=== PATIENT | male | born 1990 | race Caucasian/White ===

== ENCOUNTER 2017-07-10 11:13 | Emergency (ER) | payer MEDICAID, OTHER ==
[~2017-07-10] VITALS: Ht 172.7 cm; Wt 80.7 kg
[2017-07-10 11:18] VITALS: Ht 172.7 cm; Wt 80.7 kg
[2017-07-10] MEDS ORDERED: ONDANSETRON 4 MG INJ IV STA (11:30)
[2017-07-10] MEDS ORDERED: morphine 4 MG/ML VIAL IV STA (11:30)
[2017-07-10] MEDS ORDERED: SOD CHLORIDE 0.9% 1,000 ML IV STA (11:30)
--- NOTE | 2017-07-10 11:59 | RADRPT ---
PROCEDURE: XR Chest. CLINICAL INDICATION: Chest Pain. TECHNIQUE: Single frontal view of the chest. COMPARISON: None. FINDINGS: The cardiomediastinal silhouette is within normal limits. The lungs are clear. No signs of pleural f luid or pneumothorax are seen. The osseous structures and soft tissues are unremarkable. IMPRESSION: 1. No acute cardiopulmonary disease. RPTAT:AAJJ Physician Johny Date Time Electronically viewed and signed by Stormy Richardson Physician on 07/10/2017 11:59 QL/
[2017-07-10] MEDS ORDERED: IOHEXOL 100 ML ONE (12:52)
[2017-07-10] MEDS ORDERED: IOHEXOL 350MG/ML 50 ML BTL ONE (12:52)
[2017-07-10] MEDS ORDERED: SOD CHLORIDE 0.9% 100 ML ONE (12:52)
--- NOTE | 2017-07-10 13:02 | RADRPT ---
PROCEDURE: CT brain without contrast CLINICAL INDICATION: Head pain TECHNIQUE: CT of the brain without contrast was performed on a multidetector CT scanner, with multi planar reformats. One or more of the following dose reduction techniques were used: Automated expos ure control, adjustment in mA and / or kV according to patient size, use of iterative reconstructive technique. CTDIvol = 45 mGy; DLP = 720 mGy-cm. COMPARISON: None available FINDINGS: No acute intracranial hemorrhage is identified. No extra-axial fluid collection is seen. There is no mass effect. No midline shift is identified. Ventricles and sulci are within normal limits for size and configuration. The density of the brain is within normal limits. Vazquez-white differentiation is preserved. Calvarium and skull base are intact. Mastoid air cells and imaged paranasal sinuses grossly clear. IMPRESSION: Unremarkable noncontrast CT of the brain. RPTAT: GG .Clay Man MD, MD Date Time Electronically viewed and signed by .Clay Man MD, MD on 07/10/2017 13:01 .O/
--- NOTE | 2017-07-10 13:25 | RADRPT ---
PROCEDURE: CT Abdomen and Pelvis with contrast. CLINICAL INDICATION: Abdomen and pelvis pain. TECHNIQUE: CT scan of the abdomen and pelvis with contrast was performed. The patient was scanned following the uncomplicated intravenous administration of 100 cc of Omnipaque-300. Coronal and sag ittal reformatted images were obtained from the axial source images. Images were reviewed on a high- resolution PACS workstation. Total exam DLP is 553.95 mGy-cm. CTDIvol is 9.22 mGy. One or more of the following dose reduction techniques were used: Automated exposure control, adjustment of the mA and/or kV according to patient size, use of iterative reconstruction technique. COMPARISON: None. FINDINGS: The lung bases are normal. There is no pleural effusion. The liver is normal in size and attenuation. There is no focal hepatic lesion. The gallbladder and bile ducts are normal. The spleen is normal in size. There is no focal splenic lesion. Both adrenals are normal with no enlargement or mass. The pancreas is unremarkable with no mass or evidence of pancreatitis. Both kidneys demonstrate normal contrast enhancement. There is no renal mass or hydronephrosis. The abdominal aorta is not dilated. There is no retroperitoneal lymphadenopathy or mass. There is no pelvic lymphadenopathy or mass. The bladder and distal ureters are normal. The appendix is well seen and appears normal. There is diverticulosis of the transverse colon in the right side of the abdomen with no evidence of diverticulitis. There is a fat-containing right inguinal hernia. There is no herniated bowel. The b owel and mesentery are otherwise normal. There is no free fluid or free gas. The osseous structures are unremarkable with no fracture or lytic lesion. IMPRESSION: 1. Normal appendix. 2. Diverticulosis of the right side of the transverse colon. 3. No evidence of diverticulitis. 4. Fat-containing right inguinal hernia. No herniated bowel. 5. Otherwise unremarkable contrast enhanced CT scan of the abdomen and pelvis. RPTAT: QQ .Matthias Macedo MD, MD Date Time Electronically viewed and signed by .Matthias Macedo MD, on 07/10/2017 13:25 .R/
--- NOTE | 2017-07-10 13:27 | RADRPT ---
PROCEDURE: CTA Chest. CLINICAL INDICATION: Chest pain and shortness of breath TECHNIQUE: Continues 1.25 mm axial images were obtained from lung apices to the domes of diaphragm s following intravenous injection of 100 cc of Isovue 370. Images reconstructed in coronal, sagitta l, and 3-D format using maximum intensity projection technique.. The calculated dose length product (DLP) = 1098.23 mGy-cm. The CTDlvol = 13.70 mGy. One or more of the following dose reduction techni ques were used: Automated exposure control, adjustment of the mA and or KV according to patient size , or use of iterative reconstruction technique. COMPARISON: No prior studies are available for comparison. FINDINGS: Images through the pulmonary arteries demonstrates no evidence of a large or central pulmonary embol i. The ascending and descending thoracic aorta are normal in caliber without aneurysmal dilatation o r dissection. Heart chambers are normal in size. No pericardial effusion is seen. There is no signif icant coronary calcification. No pathologically enlarged mediastinal or axillary lymph nodes are see n. Evaluation of the lung owen demonstrates no confluent pneumonia, pleural fluid, or pneumothorax. T he underlying architecture of the lungs is normal. No suspicious or dominant lung nodules/masses are seen. No destructive bony lesions are identified.. IMPRESSION: 1. No evidence of large or central pulmonary emboli. 2. No aortic aneurysm or dissection. 3. Lungs clear RPTAT: HH .Kartik Willis MD, MD Date Time Electronically viewed and signed by .Kartik Willis MD, MD on 07/10/2017 13:27 .W/
[2017-07-10] MEDS ORDERED: IBUP-1542 PO (13:31)
--- NOTE | 2017-07-10 13:33 | ERD ---
ER Documentation Chief Complaint Chief Complaint LT SIDE NUMBNESS , CHEST PAIN , SOB STARTED 45 MTS AGO @ WORK HPI Patient is a 27-year-old male with seizures who presents with chest pain. He has had chest pain and right-sided arm weakness. It started 45 minutes prior to arrival. He was brought in by a friend who is working with him. He said that he passed out yesterday at his soccer game. He has shortness of breath. The chest pain is in the midsternal area and does not radiate. He has had no treatment as of yet. He says "I kind of had a seizure today". He admits to using cocaine yesterday and this was the first time he ever used. Upon review of old medical records this is the patient's first visit to the emergency department. He does not currently have a primary doctor. ROS All systems reviewed and are negative except as per history of present illness. Medications Home Meds Active Scripts Ibuprofen* (Motrin*) 600 Mg Tab, 600 MG PO Q6H Y for PAIN AND OR ELEVATED TEMP, #30 TAB Prov:WILLA ISSA MD 07/10/17 Allergies Allergies: Coded Allergies: No Known Allergy (Unverified , 07/10/17) PMhx/Soc Medical and Surgical Hx: pt denies Medical Hx, pt denies Surgical Hx Hx Alcohol Use: Yes (social) Hx Substance Use: No Hx Tobacco Use: Yes Smoking Status: Current every day smoker FmHx Family History: No diabetes Physical Exam Vitals Vital Signs Date Time Temp Pulse Resp B/P Pulse Ox O2 Delivery O2 Flow Rate FiO2 07/10/17 11:18 97.8 71 18 118/71 99 Physical Exam Const: Moderate distress Head: Atraumatic Eyes: Normal Conjunctiva ENT: Normal External Ears, Nose and Mouth. Neck: Full range of motion..~ No meningismus. Resp: Clear to auscultation bilaterally Cardio: Regular rate and rhythm, no murmurs Abd: Soft, non tender, non distended. Normal bowel sounds Skin: No petechiae or rashes Back: No midline or flank tenderness Ext: No cyanosis, or edema Neur: Awake confused, equal fruit shipper strength bilaterally although the fruit shipper strength is decreased, normal cranial nerves II through XII, no slurred speech Result Diagram: 07/10/17 1203 07/10/17 1203 Results 24 hrs Laboratory Tests Test 07/10/17 12:03 White Blood Count 8.210^3/ul Red Blood Count 5.2510^6/ul Hemoglobin 16.1g/dl Hematocrit 46.1% Mean Corpuscular Volume 87.8fl Mean Corpuscular Hemoglobin 30.7pg Mean Corpuscular Hemoglobin Concent 34.9g/dl Red Cell Distribution Width 12.6% Platelet Count 03682^3/UL Mean Platelet Volume 9.8fl Neutrophils % 60.0% Lymphocytes % 29.8% Monocytes % 8.7% Eosinophils % 0.9% Basophils % 0.2% Nucleated Red Blood Cells % 0.0/100WBC Neutrophils # 4.910^3/ul Lymphocytes # 2.410^3/ul Monocytes # 0.710^3/ul Eosinophils # 0.110^3/ul Basophils # 0.010^3/ul Nucleated Red Blood Cells # 0.010^3/ul Prothrombin Time 13.0Sec Prothrombin Time Ratio 1.0 INR International Normalized Ratio 0.98 Activated Partial Thromboplast Time 26.5Sec Sodium Level 141mmol/L Potassium Level 3.8mmol/L Chloride Level 104mmol/L Carbon Dioxide Level 27mmol/L Anion Gap 14 Blood Urea Nitrogen 17mg/dl Creatinine 1.21mg/dl Glucose Level 95mg/dl Calcium Level 9.1mg/dl Troponin I < 0.012ng/ml Current Medications Medications (Trade) Dose Ordered Sig/Jovanna Route PRN Reason Start Time Stop Time Status Last Admin Dose Admin Sodium Chloride (NS) 1,000 ml @ 1,000 mls/hr Q1H STAT IV 07/10/17 11:30 07/10/17 12:29 DC 07/10/17 12:40 Morphine Sulfate (morphine) 4 mg ONCE STAT IV 07/10/17 11:30 07/10/17 11:33 DC Ondansetron HCl 4 mg 4 mg ONCE STAT IV 07/10/17 11:30 07/10/17 11:33 DC Sodium Chloride 100 ml @ ud STK-MED ONCE .ROUTE 07/10/17 12:52 07/10/17 12:53 DC Iohexol (Omnipaque) 100 ml @ ud STK-MED ONCE .ROUTE 07/10/17 12:52 07/10/17 12:53 DC Iohexol (Omnipaque 350mg/ ml) 50 ml STK-MED ONCE .ROUTE 07/10/17 12:52 07/10/17 12:53 DC Procedures/MDM EKG read by me: Rate/Rhythm: Regular rate and rhythm at a rate of 61 Intervals: Normal Impression: No evidence of ischemia or arrhythmia Chest x-ray negative per radiology. CT of the head, chest, and abdomen negative per radiology. Smoking Cessation Therapy: Pt. was lectured for greater than 3 minutes on the health risks of continued smoking and the benefits of cessation. Patient is a 27-year-old male who presents with complaint of chest pain and weakness. He had a full workup including laboratory studies, EKG, CT scan of the brain, chest, and abdomen which were all negative. I believe his symptoms are likely related to the cocaine use yesterday. I doubt stroke, intracranial hemorrhage, or intracranial mass. I doubt acute coronary syndrome, pneumonia, pneumothorax, pulmonary embolism, or aortic dissection. I believe outpatient management is appropriate at this time. He feels much better after fluids and pain medicine. He will be discharged into the care of his who is here with him at the bedside. He was given copies of his laboratory studies and imaging test prior to discharge. He will need to follow-up the local clinics within 24-48 hours for reevaluation. He was instructed not to use cocaine or smoking in the future. Critical Care: Time: 35 minutes excluding all billable procedures. Treatments/Evaluations: Close monitoring and treatment of unstable vital signs, cardiorespiratory, and neurologic status, while maintaining tight balance of fluid, respiratory, and cardiac interventions. Departure Diagnosis: Primary Impression: Near syncope Additional Impression: Chest pain Chest pain type: unspecified Qualified Code: R07.9 - Chest pain, unspecified type Condition: Fair Patient Instructions: Chest Pain, Uncertain Cause [facility]errals[facility] Usted se diaz hecho un examen mdico de control que le indica que no est en alta condicin que requiera tratamiento urgente en el Departamento de Emergencia. Un estudio ms profundo y el tratamiento de gatica condicin pueden esperar sin ningn riesgo hasta que usted sea atendida/o en el consultorio de gatica mdico o alta cl isaac. Es responsabilidad suya arreglar alta dillon para el seguimiento del alejandro. MANEJO DE CONDICIONES NO URGENTES EN EL FUTURO 1) Si usted tiene un mdico de atencin primaria: Usted debera llamar a gatica mdico de atencin primaria antes de venir al departamento de emergencia. Despus de las horas de consultorio, gatica doctor o gatica asociado/a est disponible por telfono. El mdico o enfermero de gina en el servicio telefnico puede asesorarle por [employer] para atender el problema, o alejandro contrario se puede programar alta dillon. 2) Si usted no tiene un mdico de atencin primaria: Llame al mdico o clnica de referencia que aparece abajo poncho las horas de consultorio para hacer alta dillon para que le vean. CLINICAS: [facility] [phone] [facility] [phone] [facility] [phone] [address] [facility] [phone] [facility] [facility] [place] [id number] [phone] [facility] [phone] [address] Additional Instructions: Llame al doctor MAANA y светлана alta DILLON PARA DENTRO DE 1-2 EARL.Dgale a la secretaria que nosotros le instruimos hacer esta dillon.Avise o llame si gatica condicin se empeora antes de la dillon. Regresa aqui si peor o no mejor. WILLA ISSA MD Jul 10, 2017 13:33
--- NOTE | 2017-07-10 13:33 | ERD ---
ER Documentation Chief Complaint Chief Complaint LT SIDE NUMBNESS , CHEST PAIN , SOB STARTED 45 MTS AGO @ WORK HPI Patient is a 27-year-old male with seizures who presents with chest pain. He has had chest pain and right-sided arm weakness. It started 45 minutes prior to arrival. He was brought in by a friend who is working with him. He said that he passed out yesterday at his soccer game. He has shortness of breath. The chest pain is in the midsternal area and does not radiate. He has had no treatment as of yet. He says "I kind of had a seizure today". He admits to using cocaine yesterday and this was the first time he ever used. Upon review of old medical records this is the patient's first visit to the emergency department. He does not currently have a primary doctor. ROS All systems reviewed and are negative except as per history of present illness. Medications Home Meds Active Scripts Ibuprofen* (Motrin*) 600 Mg Tab, 600 MG PO Q6H Y for PAIN AND OR ELEVATED TEMP, #30 TAB Prov:WILLA ISSA MD 07/10/17 Allergies Allergies: Coded Allergies: No Known Allergy (Unverified , 07/10/17) PMhx/Soc Medical and Surgical Hx: pt denies Medical Hx, pt denies Surgical Hx Hx Alcohol Use: Yes (social) Hx Substance Use: No Hx Tobacco Use: Yes Smoking Status: Current every day smoker FmHx Family History: No diabetes Physical Exam Vitals Vital Signs Date Time Temp Pulse Resp B/P Pulse Ox O2 Delivery O2 Flow Rate FiO2 07/10/17 11:18 97.8 71 18 118/71 99 Physical Exam Const: Moderate distress Head: Atraumatic Eyes: Normal Conjunctiva ENT: Normal External Ears, Nose and Mouth. Neck: Full range of motion..~ No meningismus. Resp: Clear to auscultation bilaterally Cardio: Regular rate and rhythm, no murmurs Abd: Soft, non tender, non distended. Normal bowel sounds Skin: No petechiae or rashes Back: No midline or flank tenderness Ext: No cyanosis, or edema Neur: Awake confused, equal jute bag sewer strength bilaterally although the jute bag sewer strength is decreased, normal cranial nerves II through XII, no slurred speech Result Diagram: 07/10/17 1203 07/10/17 1203 Results 24 hrs Laboratory Tests Test 07/10/17 12:03 White Blood Count 8.210^3/ul Red Blood Count 5.2510^6/ul Hemoglobin 16.1g/dl Hematocrit 46.1% Mean Corpuscular Volume 87.8fl Mean Corpuscular Hemoglobin 30.7pg Mean Corpuscular Hemoglobin Concent 34.9g/dl Red Cell Distribution Width 12.6% Platelet Count 62721^3/UL Mean Platelet Volume 9.8fl Neutrophils % 60.0% Lymphocytes % 29.8% Monocytes % 8.7% Eosinophils % 0.9% Basophils % 0.2% Nucleated Red Blood Cells % 0.0/100WBC Neutrophils # 4.910^3/ul Lymphocytes # 2.410^3/ul Monocytes # 0.710^3/ul Eosinophils # 0.110^3/ul Basophils # 0.010^3/ul Nucleated Red Blood Cells # 0.010^3/ul Prothrombin Time 13.0Sec Prothrombin Time Ratio 1.0 INR International Normalized Ratio 0.98 Activated Partial Thromboplast Time 26.5Sec Sodium Level 141mmol/L Potassium Level 3.8mmol/L Chloride Level 104mmol/L Carbon Dioxide Level 27mmol/L Anion Gap 14 Blood Urea Nitrogen 17mg/dl Creatinine 1.21mg/dl Glucose Level 95mg/dl Calcium Level 9.1mg/dl Troponin I < 0.012ng/ml Current Medications Medications (Trade) Dose Ordered Sig/Jovanna Route PRN Reason Start Time Stop Time Status Last Admin Dose Admin Sodium Chloride (NS) 1,000 ml @ 1,000 mls/hr Q1H STAT IV 07/10/17 11:30 07/10/17 12:29 DC 07/10/17 12:40 Morphine Sulfate (morphine) 4 mg ONCE STAT IV 07/10/17 11:30 07/10/17 11:33 DC Ondansetron HCl 4 mg 4 mg ONCE STAT IV 07/10/17 11:30 07/10/17 11:33 DC Sodium Chloride 100 ml @ ud STK-MED ONCE .ROUTE 07/10/17 12:52 07/10/17 12:53 DC Iohexol (Omnipaque) 100 ml @ ud STK-MED ONCE .ROUTE 07/10/17 12:52 07/10/17 12:53 DC Iohexol (Omnipaque 350mg/ ml) 50 ml STK-MED ONCE .ROUTE 07/10/17 12:52 07/10/17 12:53 DC Procedures/MDM EKG read by me: Rate/Rhythm: Regular rate and rhythm at a rate of 61 Intervals: Normal Impression: No evidence of ischemia or arrhythmia Chest x-ray negative per radiology. CT of the head, chest, and abdomen negative per radiology. Smoking Cessation Therapy: Pt. was lectured for greater than 3 minutes on the health risks of continued smoking and the benefits of cessation. Patient is a 27-year-old male who presents with complaint of chest pain and weakness. He had a full workup including laboratory studies, EKG, CT scan of the brain, chest, and abdomen which were all negative. I believe his symptoms are likely related to the cocaine use yesterday. I doubt stroke, intracranial hemorrhage, or intracranial mass. I doubt acute coronary syndrome, pneumonia, pneumothorax, pulmonary embolism, or aortic dissection. I believe outpatient management is appropriate at this time. He feels much better after fluids and pain medicine. He will be discharged into the care of his who is here with him at the bedside. He was given copies of his laboratory studies and imaging test prior to discharge. He will need to follow-up the local clinics within 24-48 hours for reevaluation. He was instructed not to use cocaine or smoking in the future. Critical Care: Time: 35 minutes excluding all billable procedures. Treatments/Evaluations: Close monitoring and treatment of unstable vital signs, cardiorespiratory, and neurologic status, while maintaining tight balance of fluid, respiratory, and cardiac interventions. Departure Diagnosis: Primary Impression: Near syncope Additional Impression: Chest pain Chest pain type: unspecified Qualified Code: R07.9 - Chest pain, unspecified type Condition: Fair Patient Instructions: Chest Pain, Uncertain Cause Referrals: [facility] Usted se diaz hecho un examen mdico de control que le indica que no est en alta condicin que requiera tratamiento urgente en el Departamento de Emergencia. Un estudio ms profundo y el tratamiento de gatica condicin pueden esperar sin ningn riesgo hasta que usted sea atendida/o en el consultorio de gatica mdico o alta cl isaac. Es responsabilidad suya arreglar alta dillon para el seguimiento del alejandro. MANEJO DE CONDICIONES NO URGENTES EN EL FUTURO 1) Si usted tiene un mdico de atencin primaria: Usted debera llamar a gatica mdico de atencin primaria antes de venir al departamento de emergencia. Despus de las horas de consultorio, gatica doctor o gatica asociado/a est disponible por telfono. El mdico o enfermero de gina en el servicio telefnico puede asesorarle por [employer] para atender el problema, o alejandro contrario se puede programar alta dillon. 2) Si usted no tiene un mdico de atencin primaria: Llame al mdico o clnica de referencia que aparece abajo poncho las horas de consultorio para hacer alta dillon para que le vean. CLINICAS: [facility] [phone] [facility] [phone] [facility] [phone] [facility] [phone] [facility] [place] [id number] [phone] [facility]. [phone] [address] Additional Instructions: Llame al doctor MAANA y светлана alta DILLON PARA DENTRO DE 1-2 EARL.Dgale a la secretaria que nosotros le instruimos hacer esta dillon.Avise o llame si gatica condicin se empeora antes de la dillon. Regresa aqui si peor o no mejor. WILLA ISSA MD Jul 10, 2017 13:33
--- NOTE | 2017-07-10 13:33 | ERD ---
ER Documentation Chief Complaint Chief Complaint LT SIDE NUMBNESS , CHEST PAIN , SOB STARTED 45 MTS AGO @ WORK HPI Patient is a 27-year-old male with seizures who presents with chest pain. He has had chest pain and right-sided arm weakness. It started 45 minutes prior to arrival. He was brought in by a friend who is working with him. He said that he passed out yesterday at his soccer game. He has shortness of breath. The chest pain is in the midsternal area and does not radiate. He has had no treatment as of yet. He says "I kind of had a seizure today". He admits to using cocaine yesterday and this was the first time he ever used. Upon review of old medical records this is the patient's first visit to the emergency department. He does not currently have a primary doctor. ROS All systems reviewed and are negative except as per history of present illness. Medications Home Meds Active Scripts Ibuprofen* (Motrin*) 600 Mg Tab, 600 MG PO Q6H Y for PAIN AND OR ELEVATED TEMP, #30 TAB Prov:WILLA ISSA MD 07/10/17 Allergies Allergies: Coded Allergies: No Known Allergy (Unverified , 07/10/17) PMhx/Soc Medical and Surgical Hx: pt denies Medical Hx, pt denies Surgical Hx Hx Alcohol Use: Yes (social) Hx Substance Use: No Hx Tobacco Use: Yes Smoking Status: Current every day smoker FmHx Family History: No diabetes Physical Exam Vitals Vital Signs Date Time Temp Pulse Resp B/P Pulse Ox O2 Delivery O2 Flow Rate FiO2 07/10/17 11:18 97.8 71 18 118/71 99 Physical Exam Const: Moderate distress Head: Atraumatic Eyes: Normal Conjunctiva ENT: Normal External Ears, Nose and Mouth. Neck: Full range of motion..~ No meningismus. Resp: Clear to auscultation bilaterally Cardio: Regular rate and rhythm, no murmurs Abd: Soft, non tender, non distended. Normal bowel sounds Skin: No petechiae or rashes Back: No midline or flank tenderness Ext: No cyanosis, or edema Neur: Awake confused, equal apron man strength bilaterally although the apron man strength is decreased, normal cranial nerves II through XII, no slurred speech Result Diagram: 07/10/17 1203 07/10/17 1203 Results 24 hrs Laboratory Tests Test 07/10/17 12:03 White Blood Count 8.210^3/ul Red Blood Count 5.2510^6/ul Hemoglobin 16.1g/dl Hematocrit 46.1% Mean Corpuscular Volume 87.8fl Mean Corpuscular Hemoglobin 30.7pg Mean Corpuscular Hemoglobin Concent 34.9g/dl Red Cell Distribution Width 12.6% Platelet Count 05293^3/UL Mean Platelet Volume 9.8fl Neutrophils % 60.0% Lymphocytes % 29.8% Monocytes % 8.7% Eosinophils % 0.9% Basophils % 0.2% Nucleated Red Blood Cells % 0.0/100WBC Neutrophils # 4.910^3/ul Lymphocytes # 2.410^3/ul Monocytes # 0.710^3/ul Eosinophils # 0.110^3/ul Basophils # 0.010^3/ul Nucleated Red Blood Cells # 0.010^3/ul Prothrombin Time 13.0Sec Prothrombin Time Ratio 1.0 INR International Normalized Ratio 0.98 Activated Partial Thromboplast Time 26.5Sec Sodium Level 141mmol/L Potassium Level 3.8mmol/L Chloride Level 104mmol/L Carbon Dioxide Level 27mmol/L Anion Gap 14 Blood Urea Nitrogen 17mg/dl Creatinine 1.21mg/dl Glucose Level 95mg/dl Calcium Level 9.1mg/dl Troponin I < 0.012ng/ml Current Medications Medications (Trade) Dose Ordered Sig/Jovanna Route PRN Reason Start Time Stop Time Status Last Admin Dose Admin Sodium Chloride (NS) 1,000 ml @ 1,000 mls/hr Q1H STAT IV 07/10/17 11:30 07/10/17 12:29 DC 07/10/17 12:40 Morphine Sulfate (morphine) 4 mg ONCE STAT IV 07/10/17 11:30 07/10/17 11:33 DC Ondansetron HCl 4 mg 4 mg ONCE STAT IV 07/10/17 11:30 07/10/17 11:33 DC Sodium Chloride 100 ml @ ud STK-MED ONCE .ROUTE 07/10/17 12:52 07/10/17 12:53 DC Iohexol (Omnipaque) 100 ml @ ud STK-MED ONCE .ROUTE 07/10/17 12:52 07/10/17 12:53 DC Iohexol (Omnipaque 350mg/ ml) 50 ml STK-MED ONCE .ROUTE 07/10/17 12:52 07/10/17 12:53 DC Procedures/MDM EKG read by me: Rate/Rhythm: Regular rate and rhythm at a rate of 61 Intervals: Normal Impression: No evidence of ischemia or arrhythmia Chest x-ray negative per radiology. CT of the head, chest, and abdomen negative per radiology. Smoking Cessation Therapy: Pt. was lectured for greater than 3 minutes on the health risks of continued smoking and the benefits of cessation. Patient is a 27-year-old male who presents with complaint of chest pain and weakness. He had a full workup including laboratory studies, EKG, CT scan of the brain, chest, and abdomen which were all negative. I believe his symptoms are likely related to the cocaine use yesterday. I doubt stroke, intracranial hemorrhage, or intracranial mass. I doubt acute coronary syndrome, pneumonia, pneumothorax, pulmonary embolism, or aortic dissection. I believe outpatient management is appropriate at this time. He feels much better after fluids and pain medicine. He will be discharged into the care of his who is here with him at the bedside. He was given copies of his laboratory studies and imaging test prior to discharge. He will need to follow-up the local clinics within 24-48 hours for reevaluation. He was instructed not to use cocaine or smoking in the future. Critical Care: Time: 35 minutes excluding all billable procedures. Treatments/Evaluations: Close monitoring and treatment of unstable vital signs, cardiorespiratory, and neurologic status, while maintaining tight balance of fluid, respiratory, and cardiac interventions. Departure Diagnosis: Primary Impression: Near syncope Additional Impression: Chest pain Chest pain type: unspecified Qualified Code: R07.9 - Chest pain, unspecified type Condition: Fair Patient Instructions: Chest Pain, Uncertain Cause [facility]errals: [facility] Usted se diaz hecho un examen mdico de control que le indica que no est en alta condicin que requiera tratamiento urgente en el Departamento de Emergencia. Un estudio ms profundo y el tratamiento de gatica condicin pueden esperar sin ningn riesgo hasta que usted sea atendida/o en el consultorio de gatica mdico o alta cl isaac. Es responsabilidad suya arreglar alta dillon para el seguimiento del alejandro. MANEJO DE CONDICIONES NO URGENTES EN EL FUTURO 1) Si usted tiene un mdico de atencin primaria: Usted debera llamar a gatica mdico de atencin primaria antes de venir al departamento de emergencia. Despus de las horas de consultorio, gatica doctor o gatica asociado/a est disponible por telfono. El mdico o enfermero de gina en el servicio telefnico puede asesorarle por walter [employer]io para atender el problema, o alejandro contrario se puede programar alta dillon. 2) Si usted no tiene un mdico de atencin primaria: Llame al mdico o clnica de referencia que aparece abajo poncho las horas de consultorio para hacer alta dillon para que le vean. CLINICAS: [facility] [phone] [facility] [phone] [facility] [phone] [facility] [phone] [address] [facility] [place] [id number] [phone] [facility] [phone] [address] Additional Instructions: Llame al doctor MAANA y светлана alta DILLON PARA DENTRO DE 1-2 EARL.Dgale a la secretaria que nosotros le instruimos hacer esta dillon.Avise o llame si gatica condicin se empeora antes de la dillon. Regresa aqui si peor o no mejor. WILLA ISSA MD Jul 10, 2017 13:33
[2017-07-10 13:35] VITALS: BP 120/72; PULSE 57; RESP 18; TEMP 97.8
== END 2017-07-10 13:35 | disposition home or self-care (01) ==
LOC: E/R 11:13
DX: R55 Syncope and collapse (principal); R07.9 Chest pain, unspecified; F17.210 Nicotine dependence, cigarettes, uncomplicated
CPT/HCPCS: 36415; 70450; 71010; 71275; 74177; 80048; 84484; 85025; 85610; 85730; 93005; J7030; Q9967; Z7502; Z7610

== ENCOUNTER 2018-11-28 15:39 | Emergency (ER) | payer MEDICAID, OTHER ==
[~2018-11-28] VITALS: Ht 170.2 cm; Wt 65.0 kg
[~2018-11-28 15:39] MED LIST: IBUP-1542 PO
[2018-11-28] MEDS ORDERED: SOD CHLORIDE 0.9% 1,000 ML IV STA (15:48)
[2018-11-28 15:54] VITALS: Ht 170.2 cm; Wt 65.0 kg
[2018-11-28] MEDS ORDERED: LORAZEPAM 2 MG INJ IV ONE (16:00)
--- NOTE | 2018-11-28 16:33 | ERD ---
ER Documentation Chief Complaint Chief Complaint PT ASSISTED OUT OF CAR. PT NOTED HYPERVENTILATING HPI 28-year-old man brought in by EMS for anxiety and hyperventilation, he states episode occurred in his car while he was arguing with his girlfriend over the phone. He was inappropriately triaged as having a possible "seizure" and has been seen and evaluated for seizure in the past in this emergency department although no seizures have ever been verified and patient is not using antiepileptic medication. He states he began breathing fast and had spasming to both hands and wrists. He states he has had a similar episode in the past and admits to having anxiety. He denies daily medication use for anxiety or depression, denies suicidal homicidal ideation, no chest pain or shortness of breath, no fevers or chills. ROS All systems reviewed and are negative except as per history of present illness. Medications Home Meds Active Scripts Lorazepam* (Ativan*) 0.5 Mg Tablet, 0.5 MG PO Q8H PRN for ANXIETY, #10 TAB Prov:PAMELA JASON MD 11/28/18 Discontinued Scripts Ibuprofen* (Motrin*) 600 Mg Tab, 600 MG PO Q6H PRN for PAIN AND OR ELEVATED TEMP, #30 TAB Prov:WILLA ISSA MD 07/10/17 Allergies Allergies: Coded Allergies: No Known Allergy (Unverified , 07/10/17) PMhx/Soc Hx Alcohol Use: Yes (social) Hx Substance Use: No Hx Tobacco Use: Yes FmHx Family History: No diabetes Physical Exam Vitals Vital Signs Date Temp Pulse Resp B/P (MAP) Pulse Ox O2 O2 Flow FiO2 Time Delivery Rate 11/28/18 109 20 144/99 100 Room Air 17:57 (114) 11/28/18 98.2 100 26 162/98 98 15:54 (119) Physical Exam GENERAL: Well-developed, well-nourished, appears anxious, tearful HEENT: Moist mucous membranes, pink conjunctiva, no cervical spine tenderness or step-off deformities, no goiter, no jaundice or icterus, extraocular movements intact without pain. No submandibular induration, and no pharyngeal erythema NEURO: Alert and oriented 3, cranial nerves II through XII intact bilaterally, pupils equal round reactive to light, no focal deficits or facial asymmetry, sensation intact distally Strength 5/5 in upper and lower extremities kalpesh aterally CARDIAC: Regular rate and rhythm, no murmurs rubs or gallops LUNGS: Clear bilaterally no wheezing crackles or stridor, hyperventilating ABDOMEN: Soft nontender, no guarding, no rigidity, no rebound, no psoas sign no obturator sign. Normoactive bowel sounds SKIN: Warm and dry to touch, no abrasions, contusions, or hematomas, no lacerations, no ecchymosis, no target lesions, and without ulcers EXTREMITIES: No clubbing cyanosis or edema, positive bilateral carpal spasms. Distal pulses equal bilateral PSYCH: Anxious and tearful, hyperventilation Result Diagram: 11/28/18 1630 11/28/18 1630 Results 24 hrs Laboratory Tests Test 11/28/18 16:30 11/28/18 17:00 White Blood Count 7.7 10^3/ul Red Blood Count 5.19 10^6/ul Hemoglobin 15.6 g/dl Hematocrit 43.2 % Mean Corpuscular Volume 83.2 fl Mean Corpuscular Hemoglobin 30.1 pg Mean Corpuscular Hemoglobin Concent 36.1 g/dl Red Cell Distribution Width 11.9 % Platelet Count 252 10^3/UL Mean Platelet Volume 10.1 fl Immature Granulocytes % 0.300 % Neutrophils % 58.3 % Lymphocytes % 32.4 % Monocytes % 8.2 % Eosinophils % 0.4 % Basophils % 0.4 % Nucleated Red Blood Cells % 0.0 /100WBC Immature Granulocytes # 0.020 10^3/ul Neutrophils # 4.5 10^3/ul Lymphocytes # 2.5 10^3/ul Monocytes # 0.6 10^3/ul Eosinophils # 0.0 10^3/ul Basophils # 0.0 10^3/ul Nucleated Red Blood Cells # 0.0 10^3/ul Sodium Level 141 mmol/L Potassium Level 3.3 mmol/L Chloride Level 106 mmol/L Carbon Dioxide Level 20 mmol/L Anion Gap 15 Blood Urea Nitrogen 11 mg/dl Creatinine 1.04 mg/dl Est Glomerular Filtrat Rate mL/min > 60 mL/min Glucose Level 93 mg/dl Calcium Level 10.1 mg/dl Total Bilirubin 0.9 mg/dl Direct Bilirubin 0.00 mg/dl Indirect Bilirubin 0.9 mg/dl Aspartate Amino Transf (AST/SGOT) 22 IU/L Alanine Aminotransferase (ALT/SGPT) 23 IU/L Alkaline Phosphatase 83 IU/L Troponin I < 0.012 ng/ml Total Protein 7.6 g/dl Albumin 4.6 g/dl Globulin 3.00 g/dl Albumin/Globulin Ratio 1.53 Lipase 12 U/L Ethyl Alcohol Level < 10.0 mg/dl Urine Color HERNANDEZ Urine Clarity SLIGHTLY CLOUDY Urine pH 5.0 Urine Specific [place] 1.033 Urine Ketones 1+ mg/dL Urine Nitrite NEGATIVE mg/dL Urine Bilirubin 1+ mg/dL Urine Urobilinogen 2+ mg/dL Urine Leukocyte Esterase NEGATIVE Marcus/ul Urine Microscopic RBC 0 /HPF Urine Microscopic WBC 5 /HPF Urine Mucus MANY /HPF Urine Hemoglobin NEGATIVE mg/dL Urine Glucose NEGATIVE mg/dL Urine Total Protein 1+ mg/dl Current Medications Medications Dose Sig/Jovanna Start Time Status Last (Trade) Ordered Route PRN Stop Time Admin Dose Reason Admin Lorazepam 1 mg ONCE ONCE 11/28/18 DC 11/28/18 (Ativan) IV 16:00 16:40 11/28/18 16:27 Sodium 1,000 ml @ Q1H STAT 11/28/18 DC 11/28/18 Chloride 1,000 mls/hr IV 15:48 16:40 11/28/18 16:47 Procedures/MDM IV line was established patient was placed on residential monitor rhythm strip revealed a sinus tachycardia at 110 bpm with upright P and T waves. Patient was afebrile I administered 1 L normal saline IV and lorazepam 1 mg IV x1 CBC and electrolytes were normal, ethanol level negative, liver function tests normal, troponin negative EKG performed, read by me revealed a sinus tachycardia at 101 bpm, normal axis, narrow QRS complex, no concerning ST elevations or depressions noted. Chest X-ray 1V Interpreted by me: Soft Tissue: No acute abnormalities Bones: No acute abnormalities Mediastinum/Cardiac Silhouette/Lungs: No acute abnormalities Patient's anxiety has resolved and vital signs are normal at this time. He is ambulatory without difficulty and will be discharged to follow-up with PMD. Differential diagnoses considered, included but not limited to acute coronary syndrome, pulmonary embolism, aortic dissection, abdominal aortic aneurysm, sepsis, stroke, meningitis, encephalitis, pneumonia, appendicitis, cholecystitis, bowel obstruction, pyelonephritis, nephrolithiasis, cystitis, as well as metabolic, hematologic, and electrolyte abnormalities. As well as abscess, cellulitis, fractures, and dislocations. Patient feels much better at this time, and vital signs are normal, symptoms have improved. I did give strict instructions to return to the ED if symptoms continue or worsen, patient will otherwise follow-up with primary care physician. Patient understood instructions and agreed to plan. Disclaimer: Inadvertent spelling and grammatical errors are likely due to EHR/dictation software use and do not reflect on the overall quality of patient care. Also, please note that the electronic time recorded on this note does not necessarily reflect the actual time of the patient encounter. Departure Diagnosis: Primary Impression: Anxiety attack Additional Impression: Hyperventilation syndrome Condition: Good PAMELA JASON MD Nov 28, 2018 16:33
[2018-11-28] MEDS ORDERED: LORA-441 PO (17:04)
[2018-11-28 19:25] VITALS: BP 139/97; PULSE 101; RESP 18
== END 2018-11-28 19:32 | disposition home or self-care (01) ==
LOC: E/R 15:39
DX: F41.9 Anxiety disorder, unspecified (principal); F45.8 Other somatoform disorders; Z87.891 Personal history of nicotine dependence
CPT/HCPCS: 36415; 71045; 80053; 80307; 81001; 83690; 84484; 85025; 93005; 96374; 99285; J2060; J7030